=== PATIENT | male | born 1975 ===

== ENCOUNTER 2020-03-16 08:49 | Outpatient (REF) | payer MEDICAID, SELFPAY ==
[2020-03-16 22:43] LABS: Calculated LDL 109 mg/dL (<100); Cholesterol 212 mg/dL (<200); Glucose 74 mg/dL (74-106); HDL Cholesterol 71 mg/dL (40-60); TSH (W/Ref FT4) 0.88 uIU/mL (0.36-3.74); Triglyceride 162 mg/dL (<150)
[2020-03-18 10:14] LABS: Hepatitis C Ab w Rflx HCV PCR Negative (Negative)
== END 2020-03-16 09:09 ==
LOC: NCHCN 08:49
PROVIDERS: Visit Provider Nurse Practitioner Family
DX: Z13.1 Encounter for screening for diabetes mellitus (principal); Z13.29 Encounter for screening for other suspected endocrine disorder; Z11.59 Encounter for screening for other viral diseases; Z13.220 Encounter for screening for lipoid disorders
CPT/HCPCS: 80061; 82947; 86803; 84443

== ENCOUNTER 2024-09-01 17:18 | Outpatient (REF) | payer MEDICAID, SELFPAY ==
[2024-09-01 21:47] LABS: Calculated LDL 134 mg/dL (<100); Cholesterol 241 mg/dL (<200); HDL Cholesterol 85 mg/dL (>or=40); Triglyceride 113 mg/dL (<150)
== END 2024-09-01 17:19 | disposition home or self-care (01) ==
LOC: NCHCN 17:18
PROVIDERS: Visit Provider Nurse Practitioner Family
DX: Z13.220 Encounter for screening for lipoid disorders (principal)
CPT/HCPCS: 80061

== ENCOUNTER 2024-10-24 08:18 | Outpatient (REF) | payer MEDICAID, SELFPAY ==
[2024-10-24 15:11] LABS: ALT 27 U/L (16-63); AST 28 U/L (15-37); Albumin 3.9 g/dL (3.4-5.0); Alkaline Phosphatase 57 U/L (46-116); Anion Gap 5.2 mmol/L (3-11); BUN 16 mg/dL (7-18); Bilirubin, Total 0.9 mg/dL (0.2-1.0); CO2 31.8 mmol/L (21.0-32.0); CREATININE 1.1 mg/dL (0.70-1.30); Calcium 9.4 mg/dL (8.5-10.1); Chloride 104 mmol/L (98-107); Estimated GFR 82.29 (mL/min/1.73m2); Glucose 136 mg/dL (74-106); Potassium 4.2 mmol/L (3.5-5.1); Sodium 141 mmol/L (136-145); Total Protein 7.4 g/dL (6.4-8.2)
== END 2024-10-24 08:19 | disposition home or self-care (01) ==
LOC: NCHCN 08:18
PROVIDERS: Visit Provider Nurse Practitioner Family
DX: Z13.220 Encounter for screening for lipoid disorders (principal)
CPT/HCPCS: 80053